=== PATIENT | female | born 1995 | race Hispanic/Latino ===

== ENCOUNTER 2023-06-27 23:20 | Emergency (ER) | payer BC ==
[~2023-06-27] VITALS: Ht 160 cm; Wt 128.0 kg
[2023-06-27 23:36] VITALS: BP 138/98
[2023-06-27 23:45] VITALS: BP 140/94
== END 2023-06-28 01:11 | disposition home or self-care (01) | DRG 153 ==
LOC: ED 23:20
DX: H66.93 Otitis media, unspecified, bilateral (principal)